=== PATIENT | female | born 1975 | race Two or more races ===

== ENCOUNTER 2018-08-25 18:24 | Emergency (ER) | payer BC, MEDICAID ==
[~2018-08-25] VITALS: Ht 154.9 cm; Wt 89.4 kg
[2018-08-25 21:04] VITALS: BP 136/79
[2018-08-25] MEDS: LORazepam 2MG/ML-1ML VIAL IM ONE (21:40)
[2018-08-25] MEDS: methylPREDNISolone SOD SUCC 125 MG/2 ML VL IM ONE (21:40)
== END 2018-08-25 21:27 | disposition home or self-care (01) ==
LOC: ER 18:24
DX: G44.209 Tension-type headache, unspecified, not intractable (principal); M62.838 Other muscle spasm
CPT/HCPCS: 96372; 99283; J2060; J2930

== ENCOUNTER 2024-08-15 20:18 | Inpatient (IN) | payer BC, MEDICAID ==
[~2024-08-15] VITALS: Ht 157.5 cm; Wt 67.6 kg
[2024-08-15] MEDS: ASPirin 81 mg TAB PO ONE (20:39)
[2024-08-15 20:46] LABS: Basophils # (auto) 0.1 10 ^3/uL (0-0.2); Basophils % (auto) 1.2 % (0.0-2.0); Eosinophils # (auto) 0.2 10 ^3/uL (0-0.8); Eosinophils % (auto) 3.2 % (0.0-7.0); Hematocrit 40.3 % (36.0-46.0); Hemoglobin 14.4 g/dL (12.2-16.2); Lymphocytes # (auto) 1.7 10 ^3/uL (0.4-5.4); Lymphocytes % (auto) 25.6 % (10.0-50.0); Mean Corpuscular Hemoglobin 34.2 pg (28.0-32.0); Mean Corpuscular Hgb Conc. 35.9 g/dL (32.0-36.0); Mean Corpuscular Volume 95.2 fL (80.0-100.0); Monocytes # (auto) 0.5 10 ^3/uL (0-1.3); Monocytes % (auto) 6.9 % (0.0-12.0); Neutrophils # (auto) 4.2 10 ^3/uL (1.6-8.6); Neutrophils % (auto) 63.1 % (37.0-80.0); Nucleated Red Blood Cells % 0.1 %; Platelet Count (auto) 163 10^3/uL (140-450); Red Blood Cells 4.23 10^6/uL (4.0-5.20); White Blood Cell 6.6 10^3/uL (4.4-10.8)
--- NOTE | 2024-08-15 20:49 | ED.PDOC ---
HPI Comments 49 y/o F, with PMHx of HTN and cancer presents to the ED for CC of chest pain. Patient states, she has been experiencing right sided non-radiating chest pain with associated bilateral arm numbness, fatigue, and shortness of breath x3days. Patient relays, that symptoms improved yesterday (08/14/24) however, intensified as of earlier today (08/15/24). Patient reports, having previous symptoms [id number] ago, and being followed by a domestic travel consultant at [facility]. Patient denies palpations, headache, dizziness, nausea, or vomiting. No other symptoms or modifying factors at this time. Chief Complaint: Chest Pain Time Seen by MD: 20:30 Primary Care Provider: DANE Mcallister Notes: Nurses Notes, Medications, Allergies Allergies: Coded Allergies: NO KNOWN ALLERGIES (Unverified , 02/05/16) Information Source: Patient Mode of Arrival: Ambulatory Severity: Moderate Timing: Days Duration: Since onset Prehospital treatment: None Location: Chest (L) Radiation: No Radiation Onset: At Rest Cardiac Risk Factors: HTN PE Risk Factors: None History of: None Modifying Factors: Nothing Associated Signs and Symptoms: SOB Past Medical History PAST MEDICAL HISTORY: Cancer, HTN Surgical History: Denies all surgeries Surgical History (Other): thyroidectomy CHIROPRACTIC PRACTICE MANAGER History: No Pertinent CHIROPRACTIC PRACTICE MANAGER History Family History Family History: Unknown Social History Smoker: Non-Smoker Alcohol: Denies ETOH Use Drugs: Denies Drug Use Lives In: Home Constitutional: reports: fatigue; denies: chills, diaphoresis, fever, malaise, sweats, weakness, others EENTM: denies: blurred vision, double vision, ear bleeding, ear discharge, ear drainage, ear pain, ear ringing, eye pain, eye redness, hearing loss, mouth pain, mouth swelling, nasal discharge, nose bleeding, nose congestion, nose pain, photophobia, tearing, throat pain, throat swelling, voice changes, others Respiratory: reports: shortness of breath; denies: cough, hemoptysis, orthopnea, SOB at rest, SOB with excertion, stridor, wheezing, others Cardiovascular: reports: chest pain, others (bilateral arm numbness); denies: dizzy spells, diaphoresis, Dyspnea on exertion, edema, irregular heart beat, left arm pain, lightheadedness, palpitations, PND, syncope Gastrointestinal: denies: abdomen distended, abdominal pain, blood streaked bowels, constipated, diarrhea, dysphagia, difficulty swallowing, hematemesis, melena, nausea, poor appetite, poor fluid intake, rectal bleeding, rectal pain, vomiting, others Genitourinary: denies: abnormal vagina bleeding, burning, dyspareunia, dysuria, flank pain, frequency, hematuria, incontinence, pain, , vagina discharge, urgency, others Neurological: denies: dizziness, fainting, headache, left sided numbness, left sided weakness, numbness, paresthesia, pre-existing deficit, right sided num bness, right sided weakness, seizure, speech problems, tingling, tremors, weakness, others Musculoskeletal: reports: others (bilateral leg swelling); denies: back pain, gout, joint pain, joint swelling, muscle pain, muscle stiffness, neck pain Integumetry: denies: bruises, change in color, change in hair/nails, dryness, laceration, lesions, lumps, rash, wounds, others Allergic/Immunocompromised: denies: Difficulty Healing, Frequent Infections, Hives, Itching, others Hematologic/Lymphatic: denies: anemia, blood clots, easy bleeding, easy bruising, swollen glands, others Endocrine: denies: excessive hunger, excessive sweating, excessive thirst, excessive urination, flushing, intolerance to cold, intolerance to heat, unexplained weight gain, unexplained weight loss, others Psychiatric: denies: anxiety, bipolar disorder, depression, hopeless, panic disorder, schizophrenia, sleepless, suicidal, others All Other Systems: Reviewed and Negative Physical Exam General Appearance: Mild Distress HEENT: Normal ENT Inspection, Pharynx Normal, TMs Normal Neck: Full Range of Motion, Non-Tender, Normal, Normal Inspection Respiratory: Chest Non-Tender, Lungs Clear, No Accessory Muscle Use, No Respiratory Distress, Normal Breath Sounds Cardiovascular: No Edema, No JVD, No Murmur, No Gallop, Normal Peripheral Pulses, Regular Rate/Rhythm Breast Exam: Deferred Gastrointestinal: No Organomegaly, Non Tender, No Pulsatile Mass, Normal Bowel Sounds, Soft Genitalia: Deferred Pelvic: Deferred Rectal: Deferred Extremities: No calf tenderness, Normal capillary refill, Normal inspection, Normal range of motion, Non-tender, No pedal edema Musculoskeletal : Apperance: Normal Neurologic: Alert, assessment technician II-XII nml as Tested, No Motor Deficits, Normal Affect, Normal Mood, No Sensory Deficits Cerebellar Function: Normal Reflexes: Normal Skin: Dry, Normal Color, Warm Lymphatic: No Adenopathy EKG EKG : Pulse Rate (adult): 73 [place]: Normal Cardiac Rhythm: NSR Block: None Hypertrophy: None ST: Normal Was a procedure done? Was a procedure done?: No CP Differential Dx Differential Diagnosis: Anxiety / Panic Attack Differential Diagnosis: HTN Essential, HTN Accelerated Differential Diagnosis: Chest Wall Pain, Costochondritis X-Ray, Labs, Meds, VS Vital Signs Date Time Temp Pulse Resp B/P (MAP) Pulse Ox O2 Delivery O2 Flow Rate FiO2 08/15/24 21:27 53 08/15/24 20:48 73 08/15/24 20:25 97.8 82 19 148/95 (112) 99 97.8 08/15/24 20:24 73 Lab Test 08/15/24 21:30 08/15/24 20:36 Range/Units Troponin I High Sensitivity < 3 L 3 L </=34 ng/L White Blood Count 6.6 4.4-10.8 10^3/uL Red Blood Count 4.23 4.0-5.20 10^6/uL Hemoglobin 14.4 12.2-16.2 g/dL Hematocrit 40.3 36.0-46.0 % Mean Corpuscular Volume 95.2 80.0-100.0 fL Mean Corpuscular Hemoglobin 34.2 H 28.0-32.0 pg Mean Corpuscular Hemoglobin Concent 35.9 32.0-36.0 g/dL Red Cell Distribution Width 14.0 11.8-14.3 % Platelet Count 163 140-450 10^3/uL Mean Platelet Volume 10.3 6.9-10.8 fL Neutrophils (%) (Auto) 63.1 37.0-80.0 % Lymphocytes (%) (Auto) 25.6 10.0-50.0 % Monocytes (%) (Auto) 6.9 0.0-12.0 % Eosinophils (%) (Auto) 3.2 0.0-7.0 % Basophils (%) (Auto) 1.2 0.0-2.0 % Neutrophils # (Auto) 4.2 1.6-8.6 10 ^3/uL Lymphocytes # (Auto) 1.7 0.4-5.4 10 ^3/uL Monocytes # (Auto) 0.5 0-1.3 10 ^3/uL Eosinophils # (Auto) 0.2 0-0.8 10 ^3/uL Basophils # (Auto) 0.1 0-0.2 10 ^3/uL Nucleated Red Blood Cells 0.1 % D-Dimer, Quantitative 0.41 0.0-0.49 mg/L FEU Sodium Level 140 136-145 mmol/L Potassium Level 4.1 3.5-5.1 mmol/L Chloride Level 104 98-107 mmol/L Carbon Dioxide Level 26 20-31 mmol/L Anion Gap 10 5-15 Blood Urea Nitrogen 13 9-23 mg/dL Creatinine 0.63 0.550-1.02 mg/dL Glomerular Filtration Rate Calc 109 >90 mL/min BUN/Creatinine Ratio 20.6 H 10.0-20.0 Serum Glucose 89 74-106 mg/dL Calcium Level 9.0 8.7-10.4 mg/dL Current Medications Medications (Trade) Dose Ordered Sig/Celine Route Start Time Stop Time Status Last Admin Aspirin 162 mg ONCE ONCE PO 08/15/24 20:30 08/15/24 20:31 DC 08/15/24 20:39 IV Hep-Lock was established The patient was given aspirin 160 mg by mouth Patient's CBC and chemistry panel is within normal limits The troponin level x2 is negative At this time, the patient is being admitted to the hospitalist Images Reviewed?: Images reviewed and evaluated by me Time of 1ST Reevaluation: 21:00 Reevaluation 1ST: Unchanged Patient Education/Counseling: Diagnosis, Treatment, Prognosis Family Education/Counseling: No Family Present Departure 1 Departure Time of Disposition: 21:59 Impression: Primary Impression: Acute chest pain Additional Impression: Acute myocardial ischemia Disposition: 09 ADMITTED INPATIENT Admit to: Tele Condition: Fair Critical Care Note Critical Care Time?: Yes (35 min-critical care time only) Stability Stability form required: Yes Unstable for transfer: Telemetry monitoring (Telemetry monitoring required), ED Physician Assesment Heart Score Heart Score: Heart Score Response (Comments) Value History Moderate Suspicious 1 EKG Repolarization Disturb 1 Age 45-64 1 Risk Factors >3 or Hx ASHD 2 Troponin Normal limit 0 Total 5 I personally scribed for DON STREET MD ([email or web address]) on 08/15/24 at 20:48. Electronically submitted by Yovana Patino ([email or web address]). DON STREET MD August 15, 2024 20:48
[2024-08-15 21:00] LABS: Chloride 104 mmol/L (98-107); Potassium 4.1 mmol/L (3.5-5.1); Sodium 140 mmol/L (136-145)
[2024-08-15 21:01] LABS: Anion Gap 10 (5-15); Carbon Dioxide 26 mmol/L (20-31)
[2024-08-15 21:06] LABS: BUN/Creatinine Ratio 20.6 (10.0-20.0); Blood Urea Nitrogen 13 mg/dL (9-23); Glucose 89 mg/dL (74-106)
--- NOTE | 2024-08-15 23:29 | DVH ---
EXAM: XY CHEST TWO VIEWS ROUTINE CLINICAL HISTORY: CP TECHNIQUE: Frontal and lateral views of the chest WID: COMPARISON: None FINDINGS: Lines and tubes: None Chest: The heart size and pulmonary vasculature is within normal limits. No pleural effusion, pneumothorax, or consolidation. The osseous structures are grossly intact. Minor thoracic spondylosis. IMPRESSION: No acute cardiopulmonary abnormality.
[2024-08-16] VITALS (8 sets, daily range): BP systolic 108–134; BP diastolic 65–76; PULSE 51–82; RESP 16–20; TEMP 97.5–98.7; O2SAT 96–100
--- NOTE | 2024-08-16 03:29 | DVHHP2 ---
History of Present Illness Reason for Visit: chest pain History of Present Illness 49-year-old female with PMHx of hypertension and thyroid cancer status post thyroidectomy presents to the ED with right-sided non-radiating chest pain associated with bilateral arm numbness, fatigue, malaise, and shortness of breath for the past 3 days. Symptoms worsened earlier today. She denies nausea, vomiting, fever, chills, cough, or palpitations. She reports similar symptoms occurred years ago, for which she followed with cardiology at [place]. She is currently followed by endocrinology for hypothyroidism. She reports previous anxiety-like symptoms which improved with reduction of her levothyroxine dose from 200 mcg to 137 mcg; however, she now feels her symptoms are on the opposite spectrum. Current TSH is 0.8. She had a CT coronary and echocardiogram in 2021 which showed LVH EF 70% and normal coronaries. Past Medical History: Thyroid cancer s/p thyroidectomy Hypertension Hypothyroidism Surgical History: Thyroidectomy Social History Smoker: Non-Smoker Alcohol: Denies ETOH Use Drugs: Denies Drug Use Lives In: Home Review of Systems Constitutional: Yes: Weakness, Malaise; No: Fever, Chills, Sweats, Other Eyes: No: Pain, Vision change, Conjunctivae inflammation, Eyelid inflammation, Other, Redness ENT: No: Ear pain, Ear discharge, Nose pain, Nose discharge, Nose congestion, Mouth pain, Mouth swelling, Throat pain, Throat swelling, Other Respiratory: No: Cough, Dry, Shortness of breath, SOB with excertion, Wheezing, Hemoptysis, Pleuritic Pain, Sputum, Wheezing, Other Cardiovascular: Chest Pain; No: Palpitations, Orthopnea, Paroxysmal Noc. Dyspnea, Edema, Lt Headedness, Other Gastrointestinal: No: Nausea, Vomiting, Abdominal Pain, Diarrhea, Constipation, Melena, Hematochezia, Other Genitourinary: No Dysuria, No Frequency, No Incontinence, No Hematuria, No Retention, No Other Musculoskeletal: No: other, neck pain, shoulder pain, arm pain, back pain, hand pain, leg pain, foot pain Skin: No: Rash, Lesions, Jaundice, Bruising, Other Neurological: No: Weakness, Numbness, Incoordination, Change in speech, Confusion, Seizures, Other Allergies: Coded Allergies: NO KNOWN ALLERGIES (Unverified , 02/05/16) Medications Current Medications Medications Dose Ordered Sig/Celine Route Start Time Stop Time Status Last Admin Dose Admin Acetaminophen 650 mg Q6HP PRN PO 08/16/24 02:45 Enoxaparin Sodium 40 mg DAILY SC 08/16/24 10:00 Levothyroxine Sodium 137 mcg QAM@0600 PO 08/16/24 06:00 Losartan Potassium 50 mg DAILY PO 08/16/24 02:45 Exam Vital Signs Vital Signs Date Time Temp Pulse Resp B/P (MAP) Pulse Ox O2 Delivery O2 Flow Rate FiO2 08/15/24 21:27 53 08/15/24 20:25 97.8 19 148/95 (112) 99 97.8 General Appearance: Alert, Oriented X3 HEENT: Atraumatic, PERRLA Respiratory: Clear to auscultation, Normal air movement Cardiovascular: Regular rate, Normal S1 Abdominal: Normal bowel sounds, Soft Extremities: No clubbing, No cyanosis Skin: No rashes, No breakdown Neuro: Normal gait, Normal speech Psych/Mental Status: Mental status NL, Mood NL Labs/Xrays Labs Test 08/15/24 21:30 08/15/24 20:36 Range/Units Troponin I High Sensitivity < 3 L </=34 ng/L White Blood Count 6.6 4.4-10.8 10^3/uL Red Blood Count 4.23 4.0-5.20 10^6/uL Hemoglobin 14.4 12.2-16.2 g/dL Hematocrit 40.3 36.0-46.0 % Mean Corpuscular Volume 95.2 80.0-100.0 fL Mean Corpuscular Hemoglobin 34.2 H 28.0-32.0 pg Mean Corpuscular Hemoglobin Concent 35.9 32.0-36.0 g/dL Red Cell Distribution Width 14.0 11.8-14.3 % Platelet Count 163 140-450 10^3/uL Mean Platelet Volume 10.3 6.9-10.8 fL Neutrophils (%) (Auto) 63.1 37.0-80.0 % Lymphocytes (%) (Auto) 25.6 10.0-50.0 % Monocytes (%) (Auto) 6.9 0.0-12.0 % Eosinophils (%) (Auto) 3.2 0.0-7.0 % Basophils (%) (Auto) 1.2 0.0-2.0 % Neutrophils # (Auto) 4.2 1.6-8.6 10 ^3/uL Lymphocytes # (Auto) 1.7 0.4-5.4 10 ^3/uL Monocytes # (Auto) 0.5 0-1.3 10 ^3/uL Eosinophils # (Auto) 0.2 0-0.8 10 ^3/uL Basophils # (Auto) 0.1 0-0.2 10 ^3/uL Nucleated Red Blood Cells 0.1 % D-Dimer, Quantitative 0.41 0.0-0.49 mg/L FEU Sodium Level 140 136-145 mmol/L Potassium Level 4.1 3.5-5.1 mmol/L Chloride Level 104 98-107 mmol/L Carbon Dioxide Level 26 20-31 mmol/L Anion Gap 10 5-15 Blood Urea Nitrogen 13 9-23 mg/dL Creatinine 0.63 0.550-1.02 mg/dL Glomerular Filtration Rate Calc 109 >90 mL/min BUN/Creatinine Ratio 20.6 H 10.0-20.0 Serum Glucose 89 74-106 mg/dL Calcium Level 9.0 8.7-10.4 mg/dL Assessment/Plan Assessment/Plan #Chest pain #Rule out ACS #Thyroid cancer s/p thyroidectomy #Hypothyroidism #Hypertension Admit Cardiac diet Aspirin PO Levothyroxine 137 mcg Losartan 50 mg PO Enoxaparin SC Tylenol PRN Case discussed with Dr Guzmán Full code Plan discussed with: Patient, Other (rn) My Orders Orders - KARLA PIKE Procedure Category Date Status Time Admit ADMIT 08/16/24 Transmitted 02:41 Code Status CODE 08/16/24 Transmitted 02:41 Vital Signs LIZY 08/16/24 In Process 02:41 Review Orders With LIZY 08/16/24 In Process Adm. 02:41 Consistent DIET 08/16/24 Transmitted Carb(Ccho)Diabetes Breakfast Acetaminophen Tablet PHA 08/16/24 In Process (Tylenol Tablet) 02:45 Notify Of Changes LIZY 08/16/24 In Process From Base 02:41 Advance Directive LIZY 08/16/24 In Process 02:41 Patient Condition ORDERS 08/16/24 Transmitted 02:41 Allergies LIZY 08/16/24 In Process 02:41 Enoxaparin Sodium PHA 08/16/24 In Process (Lovenox) 10:00 Thyroid Stimulating LAB 08/16/24 In Process Hormone 02:41 Levothyroxine Tablet PHA 08/16/24 In Process (Synthroid Tablet) 06:00 Losartan Tablet PHA 08/16/24 In Process (Cozaar Tablet) 02:45 B-Type Natriuretic LAB 08/16/24 In Process Peptide 02:45 Hemoglobin A1c LAB 08/16/24 Logged 03:27 Complete Blood Count LAB 08/16/24 Logged 03:27 Comprehensive LAB 08/16/24 Logged Metabolic Panel 03:27 Urinalysis LAB 08/16/24 Transmitted 03:27 Drug Screen LAB 08/16/24 Transmitted 03:27 Date of Service: August 16, 2024 Billing Provider: CEFERINO GUZMÁN MD Common Visit Codes: 73690-XGEADSC INP/OBS CARE (HIGH) Secondary Visit Codes: 47241-[id number] CARE PLAN 30 MINUTES KARLA PIKE RESIDENT August 16, 2024 03:29
[2024-08-16] MEDS: LOSARTAN POTASSIUM 50 MG TAB PO SCH (05:43)
[2024-08-16] MEDS: LEVOTHYROXINE SODIUM 25 MCG TAB PO SCH (05:47)
[2024-08-16] MEDS ORDERED: AML5T PO (06:18)
[2024-08-16] MEDS ORDERED: LEVO-140 PO (06:18)
[2024-08-16] MEDS ORDERED: LOSA-535 PO (06:18)
[2024-08-16 06:31] LABS: Basophils # (auto) 0.1 10 ^3/uL (0-0.2); Basophils % (auto) 0.9 % (0.0-2.0); Eosinophils # (auto) 0.2 10 ^3/uL (0-0.8); Hematocrit 39.9 % (36.0-46.0); Hemoglobin 13.8 g/dL (12.2-16.2); Lymphocytes # (auto) 1.5 10 ^3/uL (0.4-5.4); Lymphocytes % (auto) 24.7 % (10.0-50.0); Mean Corpuscular Hemoglobin 32.8 pg (28.0-32.0); Mean Corpuscular Hgb Conc. 34.5 g/dL (32.0-36.0); Mean Corpuscular Volume 95.2 fL (80.0-100.0); Monocytes # (auto) 0.5 10 ^3/uL (0-1.3); Neutrophils # (auto) 3.7 10 ^3/uL (1.6-8.6); Neutrophils % (auto) 62.4 % (37.0-80.0); Nucleated Red Blood Cells % 0.1 %; Platelet Count (auto) 158 10^3/uL (140-450); Red Blood Cells 4.19 10^6/uL (4.0-5.20)
[2024-08-16 06:52] LABS: Alanine Aminotransferase 37 U/L (7-40); Albumin 4.3 g/dL (3.2-4.8); Alkaline Phosphatase 50 U/L (46-116); Anion Gap 9 (5-15); Aspartate Aminotransferase 27 U/L (13-40); BUN/Creatinine Ratio 16.4 (10.0-20.0); Blood Urea Nitrogen 10 mg/dL (9-23); Carbon Dioxide 28 mmol/L (20-31); Chloride 104 mmol/L (98-107); Glucose 83 mg/dL (74-106); Potassium 3.8 mmol/L (3.5-5.1); Sodium 141 mmol/L (136-145); Total Protein 6.7 g/dL (5.7-8.2)
[2024-08-16 06:54] LABS: Bilirubin, Total 1.2 mg/dL (0.2-1.0); Calcium 8.5 mg/dL (8.7-10.4)
[2024-08-16] MEDS: ASPirin 81 mg TAB PO SCH (09:35)
[2024-08-16] MEDS: ENOXAPARIN SOD 40 MG/0.4 ML SYRINGE SC SCH (09:36)
[2024-08-16 10:10] LABS: Urine Bacteria None Seen /hpf (None Seen)
[2024-08-16 10:18] LABS: Urine Blood 1+ /uL (Negative); Urine Clarity Clear (Clear); Urine Color Yellow (Yellow); Urine Protein, UAD Negative (Negative); Urine Specific Gravity 1.016 (1.001-1.035); Urine Squamous Epithelial Cell FEW /hpf (<5); Urine Urobilinogen Normal (Negative); Urine WBC 1 /HPF (0-5)
[2024-08-16 10:33] LABS: Amphetamine Screen, Urine Neg (NEGATIVE)
[2024-08-16 10:34] LABS: Barbiturate Scree,Urine Neg (NEGATIVE); Benzodiazephine Screen, Urine Neg (NEGATIVE); Cannabinoid Screen, Urine Neg (NEGATIVE); Cocaine Screen, Urine Neg (NEGATIVE); Opiate Scree,Urine Neg (NEGATIVE); Phencyclidine Screen, Urine Neg (NEGATIVE)
--- NOTE | 2024-08-16 22:01 | ECG ---
[facility] Test Date: 2024-08-15 Test Time: 20:24:46 Pat Name: VILMA LEE Department: ED Room: [address] [place] [address] 1 Gender: F Outside Collector: BOB : 1975 Requested By: DON STREET Order Number: [id number] Reading MD: Gallo Zelaya Measurements Intervals [place] Rate: 73 P: 60 MA: 144 QRS: 46 QRSD: 76 T: 38 QT: 396 QTc: 437 Interpretive Statements Sinus rhythm Electronically Signed On 08-17-2024 13:12:09 PDT by Gallo Zelaya Please click the below link to view image of tracing.
--- NOTE | 2024-08-16 22:01 | ECG ---
[facility] Test Date: 2024-08-15 Test Time: 21:27:14 Pat Name: VILMA LEE Department: ER Room: [address] [place] [address] 1 Gender: F Food Checker: REYES : 1975 Requested By: DON STREET Order Number: [id number] Reading MD: Gallo Zelaya Measurements Intervals [place] Rate: 53 P: 65 DC: 143 QRS: 51 QRSD: 75 T: 48 QT: 430 QTc: 404 Interpretive Statements Sinus rhythm Baseline wander in lead(s) V6 Electronically Signed On 08-17-2024 13:12:12 PDT by Gallo Zelaya Please click the below link to view image of tracing.
[2024-08-17] VITALS (7 sets, daily range): BP systolic 95–112; BP diastolic 54–66; PULSE 63–85; RESP 16–17; TEMP 97.5–98.2; O2SAT 94–100
[2024-08-17] MEDS: ACETAMINOPHEN 325 MG TAB PO PRN (13:18)
--- NOTE | 2024-08-17 17:07 | DVHSR ---
APPROVED REPORT EXAM: Two-dimensional and M-mode echocardiogram with Doppler and color Doppler. Blood Pressure: 117/76 mmHg INDICATION Chest Pain RISK FACTORS Height: 5'2, Weight: 147 DIMENSIONS LVDd4.1 (3.8-5.7cm)LA (2D)4.1 (1.9-4.0cm)Aortic Root3.2 (2.0-3.7cm) LVDs2.8 (2.5-4.0cm)LA (MM) (1.9-4.0cm)Aortic Cusp Exc1.6 (1.5-2.0cm) EF (%) 60.0 (55-70%)Rt. Atrium3.3 (1.9-4.0cm)Asc. Aorta cm IVSd0.9 (0.7-1.1cm)RV (D)3.4 (1.8-2.4cm) PWd0.9 (0.7-1.1cm) Mitral Valve MitralMitral Stenosis E wave1.22m/sMV Mean GR.mmHg A wave0.65m/sMV Peak GR.60mmHg E/A ratio1.92D MVAcm2 DECEL [id number] 1/2 [place] Aortic Valve Aortic ValveAortic Stenosis V11.06m/Carole Mean GR.4mmHg V21.24m/Carole Peak GR.6mmHg LVOT Diameter2.3 (1.8-2.4cm)Doppler AVA3.55cm2 Pulmonic Valve V20.80m/s Tricuspid Valve TR Velocity2.00m/s [id number] Conclusion Sinus rhythm. Left atrial and right ventricular enlargement. Mild aortic root enlargement. Valves are normal. Left ventricular function is preserved at 60% with normal RV function. Dopplers unremarkable. No pericardial effusion masses or vegetations.
--- NOTE | 2024-08-17 17:50 | DVHDS2 ---
Discharge Summary Date of Admission August 16, 2024 at 02:41 Date of Discharge: August 17, 2024 Labs/Diagnostic Data: Laboratory Results Test 08/16/24 09:30 08/16/24 06:05 08/15/24 21:30 08/15/24 20:36 Urine Color Yellow (Yellow) Urine Clarity Clear (Clear) Urine pH 7.0 (5.0-9.0) Urine Specific [place] 1.016 (1.001-1.035) Urine Protein Negative (Negative) Urine Ketones Negative (Negative) Urine Blood 1+ /uL (Negative) Urine Nitrite Negative (Negative) Urine Bilirubin Negative (Negative) Urine Urobilinogen Normal mg/dL (Negative) Urine Leukocyte Esterase Negative /uL (Negative) Urine RBC 8 /hpf (0 - 4) Urine Microscopic WBC 1 /HPF (0-5) Urine Squamous Epithelial Cells Few /hpf (<5) Urine Bacteria None seen /hpf (None Seen) Urine Glucose Normal mg/dL (Normal) Urine Opiates Screen Neg (NEGATIVE) Urine Fentanyl Screen Neg (NEGATIVE) Urine Barbiturates Screen Neg (NEGATIVE) Urine Phencyclidine Screen Neg (NEGATIVE) Urine Amphetamines Screen Neg (NEGATIVE) Urine Benzodiazepines Screen Neg (NEGATIVE) Urine Cocaine Screen Neg (NEGATIVE) Urine Cannabinoids Screen Neg (NEGATIVE) White Blood Count 6.0 10^3/uL (4.4-10.8) Red Blood Count 4.19 10^6/uL (4.0-5.20) Hemoglobin 13.8 g/dL (12.2-16.2) Hematocrit 39.9 % (36.0-46.0) Mean Corpuscular Volume 95.2 fL (80.0-100.0) Mean Corpuscular Hemoglobin 32.8 pg (28.0-32.0) Mean Corpuscular Hemoglobin Concent 34.5 g/dL (32.0-36.0) Red Cell Distribution Width 14.0 % (11.8-14.3) Platelet Count 158 10^3/uL (140-450) Mean Platelet Volume 10.2 fL (6.9-10.8) Neutrophils (%) (Auto) 62.4 % (37.0-80.0) Lymphocytes (%) (Auto) 24.7 % (10.0-50.0) Monocytes (%) (Auto) 8.0 % (0.0-12.0) Eosinophils (%) (Auto) 4.0 % (0.0-7.0) Basophils (%) (Auto) 0.9 % (0.0-2.0) Neutrophils # (Auto) 3.7 10 ^3/uL (1.6-8.6) Lymphocytes # (Auto) 1.5 10 ^3/uL (0.4-5.4) Monocytes # (Auto) 0.5 10 ^3/uL (0-1.3) Eosinophils # (Auto) 0.2 10 ^3/uL (0-0.8) Basophils # (Auto) 0.1 10 ^3/uL (0-0.2) Nucleated Red Blood Cells 0.1 % Sodium Level 141 mmol/L (136-145) Potassium Level 3.8 mmol/L (3.5-5.1) Chloride Level 104 mmol/L (98-107) Carbon Dioxide Level 28 mmol/L (20-31) Anion Gap 9 (5-15) Blood Urea Nitrogen 10 mg/dL (9-23) Creatinine 0.61 mg/dL (0.550-1.02) Glomerular Filtration Rate Calc 110 mL/min (>90) BUN/Creatinine Ratio 16.4 (10.0-20.0) Serum Glucose 83 mg/dL (74-106) Hemoglobin A1c 4.9 % A1C (<5.7) Calcium Level 8.5 mg/dL (8.7-10.4) Total Bilirubin 1.2 mg/dL (0.2-1.0) Aspartate Amino Transferase (AST) 27 U/L (13-40) Alanine Aminotransferase (ALT) 37 U/L (7-40) Alkaline Phosphatase 50 U/L (46-116) Total Protein 6.7 g/dL (5.7-8.2) Albumin 4.3 g/dL (3.2-4.8) Troponin I High Sensitivity < 3 ng/L (</=34) D-Dimer, Quantitative 0.41 mg/L FEU (0.0-0.49) B-Type Natriuretic Peptide 23.90 pg/mL (0-100) Thyroid Stimulating Hormone (TSH) 0.83 uIU/mL (0.55-4.78) Other Laboratory Tests 08/16/24 06:05 Brief Hx & Hospital Course: 49-year-old female with PMHx of hypertension and thyroid cancer status post thyroidectomy presents to the ED with right-sided non-radiating chest pain associated with bilateral arm numbness, fatigue, malaise, and shortness of breath for the past 3 days. Symptoms worsened earlier today. She denies nausea, vomiting, fever, chills, cough, or palpitations. She reports similar symptoms occurred years ago, for which she followed with cardiology at [place]. She is currently followed by endocrinology for hypothyroidism. She reports previous anxiety-like symptoms which improved with reduction of her levothyroxine dose from 200 mcg to 137 mcg; however, she now feels her symptoms are on the opposite spectrum. Current TSH is 0.8. She had a CT coronary and echocardiogram in 2021 which showed LVH EF 70% and normal coronaries. Chest pain resolved troponins and echo wnl Condition at Discharge: Good Final Diagnosis/Problems List non cardiac chest pain HTN Discharge Disposition: Home Discharge Instruct/Medications Diet: Regular Activity: No Restrictions, As Tolerated Follow Up/Referral: PCP in 7 days Medications: same home medications Discharge Statement: "Patient was advised to return to the ER or call 911 if any headaches, dizziness, shortness of breath, chest pain, abdominal pain, bleeding, fevers, or worsening of medical condition. Patient was counseled about treatment plan, medications, possible side effects, patientverbalized understanding. All questions were answered to the best of my ability. This discharge took greater then 30 minutes in planning, reviewing documentation, counseling the patient, and discussing with other team members." ASSESSMENT ASSESSMENT Assessment non cardiac chest pain Date of Service: August 17, 2024 Billing Provider: JODI BILLINGS MD Common Visit Codes: 27811-BXY/OBS DISCH DAY >30min JODI BILLINGS MD August 17, 2024 17:50
== END 2024-08-17 19:23 | disposition home or self-care (01) | DRG 203 ==
LOC: ER 20:18 → OVERFLOW 08-16 02:41 → EAST 08-16 16:23
PROVIDERS: ADMIT Hospitalist; ATTEND Hospitalist
DX: M94.0 Chondrocostal junction syndrome [Tietze] (principal); E89.0 Postprocedural hypothyroidism; I10 Essential (primary) hypertension; Z85.850 Personal history of malignant neoplasm of thyroid
CPT/HCPCS: 36415; 71046; 80048; 80053; 80307; 81001; 83036; 83880; 84443; 84484; 85025; 85379; 93005; 93306; 96372; 99291; G0378